=== PATIENT | male | born 1965 | race Caucasian/White ===

== ENCOUNTER → 2019-12-08 08:31 | Outpatient (CLI) | payer OTHER, SELFPAY ==
[2019-12-08 08:49] LABS: Add Manual Diff / Slide Review NO; Basophils Absolute Auto 0 /uL (0-100); Basophils Percent Auto 0.7 % (0-2); Eosinophils Absolute Auto 200 /uL (0-450); Eosinophils Percent Auto 2.6 % (2-4); Hematocrit 39.2 % (41-53); Hemoglobin 13.5 g/dL (13.5-17.5); Lymphocytes Absolute Auto 2100 /uL (1100-4500); Lymphocytes Percent Auto 30.7 % (25-40); Mean Corpuscular HGB Conc 34.5 % (30-36); Mean Corpuscular Hemoglobin 33.5 PG (26-34); Monocytes Absolute Auto 600 /uL (0-900); Monocytes Percent Auto 8.7 % (3-14); Neutrophils Absolute Auto 4000 /uL (1500-7000); Neutrophils Percent Auto 57.3 % (50-75); Platelet Count 179 X10^3/uL (150-400); Red Blood Cell Count 4.04 X10^6/uL (4.5-5.9); Red Cell Distribution Width 13.5 % (11.6-14.8)
[2019-12-08 09:13] LABS: Alanine Aminotransferase 20 IU/L (<50); Albumin 4.6 g/dL (3.5-5.0); Albumin Globulin Ratio 1.5 (1.0-2.8); Alkaline Phosphatase 106 U/L (38-126); Aspartate Aminotransferase 36 IU/L (17-59); BUN Creatinine Ratio 21.3 (6-22); Bilirubin Total 0.5 mg/dL (0.2-1.3); Blood Urea Nitrogen 17 mg/dL (9-20); Calcium 9.7 mg/dL (8.4-10.2); Carbon Dioxide 26 mmol/L (22-32); Chloride 106 mmol/L (98-107); Cholesterol 186 mg/dL (140-199); Estimated Glomerular Filt Rate > 60.0 mL/min (>60); Globulin 3.1 g/dL (1.7-4.1); Glucose 95 mg/dL (70-100); HDL Cholesterol 32 mg/dL (40-60); HEMOLYSIS < 15 (0-50); LDL Cholesterol Calculated 119 mg/dL (<100); Sodium 139 mmol/L (137-145); Total Protein 7.7 g/dL (6.3-8.2); Triglycerides 177 mg/dL (35-150)
[2019-12-08 09:15] LABS: Potassium 4.2 mmol/L (3.4-5.1)
[2019-12-08 09:50] LABS: TSH w/ Reflex to FT4 1.84 uIU/mL (0.47-4.68)
== END ==
PROVIDERS: Family Provider Internal Medicine; PCP Internal Medicine; Referring Provider Internal Medicine; Visit Provider Internal Medicine
DX: I10 Essential (primary) hypertension (principal)
CPT/HCPCS: 36415; 80053; 80061; 84443; 85025

== ENCOUNTER → 2019-12-29 07:52 | Outpatient (CLI) | payer OTHER, SELFPAY ==
--- NOTE | 2019-12-29 08:08 | DI.ECHO.S_ITS ---
Echocardiogram Report + + :Name: CYRIL MULLINS Study Date: 12/29/2019 Height: 67 in : :[facility] Weight: 250 lb : : Gender: Male BSA: 2.2 m2 : :: 1965 Age: 54 yrs BP: 120/74 mmHg: :Reason For Study: Arrhythmia : : Performed By: Evangelina Driver : :Referring: ROSEANNE HAMPTON R : + + Interpretation Summary The left ventricle is normal in size. The left ventricular ejection fraction is normal. There are no focal wall motion abnormalities. Diastolic parameters suggest probable normal left ventricular diastolic function and normal filling pressures. The right ventricle is normal in size and function. -No structural abnormalities by echocardiogram. Procedure: A two-dimensional transthoracic echocardiogram with color flow and Doppler was performed. The study quality was technically adequate. There is no prior echocardiogram noted for this patient. The patient was in normal sinus rhythm during the exam. Left Ventricle: The left ventricle is normal in size. Left ventricular wall thickness is at the upper limits of normal. There is no ventricular septal defect visualized. The ejection fraction is estimated to be 60-65%. The left ventricular ejection fraction is normal. There are no focal wall motion abnormalities. Diastolic parameters suggest probable normal left ventricular diastolic function and normal filling pressures. Right Ventricle: The right ventricle is normal in size and function. Atria: Both atria are normal in size. There is no Doppler evidence for an interatrial shunt. Mitral Valve: The mitral valve is normal in structure and function. There is trace mitral regurgitation. Aortic Valve: The aortic valve is normal in structure and function. The aortic valve opens well. No aortic regurgitation is present. Tricuspid Valve: The tricuspid valve is normal in structure and function. There is a trace or physiologic amount of tricuspid regurgitation. The right ventricular systolic pressure is estimated to be at least 29 mmHg based on an estimated right atrial pressure of 3 mm Hg. Pulmonic Valve: The pulmonic valve is not well seen, but is grossly normal. Great Vessels: The aortic root is normal size. The ascending aorta is normal in size. The aortic arch is mildly enlarged. The IVC is of normal diameter and collapses greater than 50% with a sniff. This suggests a low right atrial pressure of 3 mm Hg. Pericardium/ Pleura There is no pericardial effusion. MMode/2D Measurements & Calculations LVIDd: 5.6 cm LVOT diam: 2.2 cm LVIDs: 3.7 cm Ao root diam: 3.3 cm FS: 34.5 % Aortic Jxn: 2.8 cm EPSS: 0.39 cm asc Aorta Diam: 3.2 cm IVSd: 0.94 cm Ao Arch Diam (Prox Trans): 3.6 cm LVPWd: 1.00 cm LV lyles. diameter/BSA (cm/m^2): 2.5 LV sys. diameter/BSA (cm/m^2): 1.7 LA A2 area: 19.4 cm2 RA long axis: 5.2 cm LA A4 area: 19.5 cm2 RA area: 15.1 cm2 LA length (vol): 4.9 cm RA vol: 37.1 ml LA vol: 65.5 ml RA : 16.7 ml/m2 LA vol index: 29.5 ml/m2 IVC diam: 1.8 cm RVD1 (basal): 4.2 cm RVD2 (mid): 2.4 cm TAPSE: 2.7 cm Doppler Measurements & Calculations Ao V2 max: 190.2 cm/sec LVOT Max Calvin: 115.3 cm/sec Ao V2 mean: 134.0 cm/sec LV V1 max P.3 mmHg Ao max P.5 mmHg LV V1 VTI: 23.2 cm Ao mean P.2 mmHg YAYO(I,D): 2.3 cm2 Ao V2 VTI: 38.8 cm YAYO(V,D): 2.4 cm2 sev ratio: 0.60 YAYO indexed to BSA (cm^2/m^2): 1.0 MV E max calvin: 83.4 cm/sec TR max calvin: 254.3 cm/sec MV A max calvin: 71.6 cm/sec TR max P.0 mmHg MV E/A: 1.2 PA V2 max: 135.2 cm/sec Med Peak E' Calvin: 9.1 cm/sec PA V2 mean: 89.9 cm/sec E/E' med: 9.2 PA mean P.7 mmHg Lat Peak E' Calvin: 10.0 cm/sec PA Accel Time: 0.09 sec E/E' lat: 8.3 E/e' average: 8.8 MV dec time: 0.21 sec MV P1/2t: 61.7 msec MV P1/2t max calvin: 83.8 cm/sec SV(LVOT): 90.4 ml MVA(P1/2t): 3.6 cm2 Electronically signed by: Natanael Nam M.D. on Reading Physician:12/29/2019 06:05 PM
== END ==
PROVIDERS: Family Provider Internal Medicine; PCP Internal Medicine; Referring Provider Internal Medicine; Visit Provider Internal Medicine
DX: I49.9 Cardiac arrhythmia, unspecified (principal)
CPT/HCPCS: 93306

== ENCOUNTER → 2020-06-28 09:05 | Outpatient (CLI) | payer OTHER, SELFPAY ==
[2020-06-28 12:08] LABS: COVID19 -Nasal RAPID Negative (Negative)
== END ==
PROVIDERS: Family Provider Internal Medicine; PCP Internal Medicine; Visit Provider Surgery
DX: Z01.812 Encounter for preprocedural laboratory examination (principal); Z20.822 Contact with and (suspected) exposure to COVID-19
CPT/HCPCS: 87635

== ENCOUNTER 2020-07-01 09:44 | Day surgery (SDC) | payer OTHER, SELFPAY ==
[2020-07-01] VITALS (7 sets, daily range): BP systolic 114–140; BP diastolic 71–89; PULSE 60–78; RESP 11–20; TEMP 36.2–36.8; O2SAT 96–99; BMI 39.1
[2020-07-01] MEDS: LACTATED RINGERS 1,000 ML 200 ML IV (10:38)
--- NOTE | 2020-07-01 12:06 | P.HP_ITS ---
History of Present Illness History of Present Illness Date Patient Seen: 07/01/20 Time Patient Seen: 12:06 Chief complaint: SDC Narrative: The patient presents for colorectal sreening. They have never had any previous examination for such. No personal or family history of colon cancer. On further history denies any recent gastrointestinal symptoms. No nausea, vomiting, abdominal pain, loss of appetite, unexplained weight loss, change in bowel habits, diarrhea, constipation, melena, hematochezia, or bright red blood per rectum. Patient History Medical History Diverticular disease of colon (~1996) Eczema (~1976) Essential hypertension Frequent headaches (~1979) Surgical History Anesthesia S/P partial colectomy (~1996) Family & Social History Family History Mother Diabetes mellitus History of heart disease Father History of heart disease Brother Diabetes mellitus Social History: household members family Tobacco & Substance use: Smoking Status Never smoker alcohol intake current alcohol intake frequency holiday/special occasion Substance Use Type does not use Meds Home Medications and Allergies Home Medications Medication Instructions Recorded Confirmed Type metoprolol succinate 100 mg 100 mg PO BID #180 tab 04/09/20 07/01/20 Rx tablet,extended release 24 hr acetaminophen [Tylenol 8 Hour] 650 mg PO Q8H 07/01/20 07/01/20 History aspirin 325 mg PO Q4H 07/01/20 07/01/20 History diphenhydramine-acetaminophen 2 tab PO BEDTIME PRN 07/01/20 07/01/20 History [Tylenol PM Extra Strength] famotidine 20 mg PO DAILY 07/01/20 07/01/20 History ibuprofen 200 mg PO Q6H PRN 07/01/20 07/01/20 History naproxen sodium 220 mg PO BID 07/01/20 07/01/20 History Allergies Allergy/AdvReac Type Severity Reaction Status Date / Time chlorpheniramine Allergy Unknown Verified 07/01/20 10:16 [CHLORPHENIRAMINE] oxycodone AdvReac Intermediate Nausea/Vomi Verified 07/01/20 10:16 ting Review of Systems Review of Systems Narrative: A 10 point review of systems is negative except as noted in the HPI Exam Vital Signs (past 8 hours): - 07/01/20 10:18 Temperature 97.8 F Pulse Rate 78 Respiratory Rate 15 Blood Pressure 140/89 Pulse Oximetry 97 Oxygen Delivery Method Room Air Narrative Exam Narrative: General-no acute distress, well nourished adult male HEENT-moist mucous membranes, no scleral icterus Neck-supple, no lymphadenopathy Chest- non labored respirations, clear to auscultation bilaterally Cardiac-regular rate no peripheral edema Abdomen-soft, nontender, non distended Extremities-warm, well perfused Neurological-alert and oriented, no focal deficits Assessment & Plan Assessment & Plan narrative: The patient requires colorectal screening and colonoscopy is recommended. Technical details were discussed. Risks, benefits, alternatives explained. Risks including but not limited to myocardial infarction, aspiration, bleeding, pain, missed lesion, incomplete examination, need for further radiographic studies, colonic perforation, and need for major abdominal surgery were discussed. All questions were answered to their satisf action, and they are in agreement with this plan.
[2020-07-01] MEDS: fentaNYL 250 MCG/5 ML INJ IV (12:24)
[2020-07-01] MEDS: MIDAZOLAM 5 MG/5 ML VIAL IV (12:24)
--- NOTE | 2020-07-01 12:32 | PM.OP.ENDO ---
Operative Date/Time/Diagnoses Date of procedure: 07/01/20 Time of procedure: 12:32 Pre-op diagnosis: screening colonoscopy Post-op diagnosis: same Procedure & Clinicians Study performed: colonoscopy Same procedure as scheduled: Yes Indications: 55M no prior colonoscopy here for screening Surgeon: Favian Keys Procedure Notes Procedure in detail: Medications: Conscious sedation using 5mg IV midazolam and 150mcg IV of fentanyl The history and physical was performed/updated and the patient is ASA class is 2. The procedure was discussed in detail with the patient. Potential risks complications including infection, bleeding, missed diagnosis, perforation, need for surgery, and were explained. Their questions were answered and informed consent was obtained. Patient was brought to the procedure room and placed standard monitoring equipment. The patient's vital signs were monitored continuously throughout the entire procedure. Prior to starting time-out was performed. The patient was placed in the left lateral recumbent position. Procedural sedation was administered. Examination began with a thorough inspection of the perianal area there was no evidence of fissures, fistulae, external hemorrhoids or cutaneous malignancy. The colonoscopy scope was then placed into the anal canal and was advanced to the cecum, which was identified by the ileocecal valve, the appendiceal orifice and the confluence of the taenia. The scope was then slowly withdrawn examining colon thoroughly in all directions, irrigating it of any residual stool. No masses or polyps End to side colonic anastamosis The patient tolerated the procedure well. They will be discharged once criteria are met. The prep was of good/excellent quality. The withdrawl time was 6 minutes. The sedation time was 20 minutes. Specimen(s): none sent Complications: none Impression: Normal colonoscopy Post-procedure Recommendations: Colonscopy in 10 years Disposition: same day surgery
== END 2020-07-01 13:25 | disposition home or self-care (01) ==
PROVIDERS: Family Provider Internal Medicine; PCP Internal Medicine; Referring Provider Surgery; Visit Provider Surgery
PROC: 0DJD8ZZ Inspection of Lower Intestinal Tract, Via Natural or Artificial Opening Endoscopic (ICD-10-PCS; CPT 45378; principal; 2020-07-01 10:45)
DX: Z12.11 Encounter for screening for malignant neoplasm of colon (principal); I10 Essential (primary) hypertension
CPT/HCPCS: 45378; 99152; J2250; J3010

== ENCOUNTER → 2020-11-18 14:11 | Outpatient (CLI) | payer OTHER, SELFPAY ==
[2020-11-18 16:17] LABS: Alanine Aminotransferase 19 IU/L (<50); Albumin 4.4 g/dL (3.5-5.0); Albumin Globulin Ratio 1.4 (1.0-2.8); Alkaline Phosphatase 92 U/L (38-126); Aspartate Aminotransferase 32 IU/L (17-59); Bilirubin Total 0.6 mg/dL (0.2-1.3); Blood Urea Nitrogen 16 mg/dL (9-20); Calcium 10.8 mg/dL (8.4-10.2); Carbon Dioxide 25 mmol/L (22-32); Chloride 103 mmol/L (98-107); Estimated Glomerular Filt Rate > 60.0 mL/min (>60); Globulin 3.1 g/dL (1.7-4.1); Glucose 145 mg/dL (70-100); HEMOLYSIS < 15 (0-50); Potassium 4.5 mmol/L (3.4-5.1); Sodium 137 mmol/L (137-145); Total Protein 7.5 g/dL (6.3-8.2)
[2020-11-18 16:47] LABS: Prostate Specific Antigen Scrn 0.765 ng/mL (0.1-4.0)
[2020-11-18 16:49] LABS: TSH w/ Reflex to FT4 0.76 uIU/mL (0.47-4.68)
== END ==
PROVIDERS: Family Provider Internal Medicine; PCP Internal Medicine; Referring Provider Internal Medicine; Visit Provider Internal Medicine
DX: I10 Essential (primary) hypertension (principal); L30.9 Dermatitis, unspecified; Z12.5 Encounter for screening for malignant neoplasm of prostate
CPT/HCPCS: 36415; 80053; 84443; G0103

== ENCOUNTER → 2022-01-09 15:21 | Outpatient (CLI) | payer OTHER, SELFPAY ==
[2022-01-09 18:20] LABS: Alanine Aminotransferase 16 IU/L (<50); Albumin 4.3 g/dL (3.5-5.0); Albumin Globulin Ratio 1.5 (1.0-2.8); Alkaline Phosphatase 92 U/L (38-126); Aspartate Aminotransferase 28 IU/L (17-59); BUN Creatinine Ratio 16.1 (6-22); Bilirubin Total 0.4 mg/dL (0.2-1.3); Blood Urea Nitrogen 14 mg/dL (9-20); Calcium 9.1 mg/dL (8.4-10.2); Carbon Dioxide 26 mmol/L (22-32); Chloride 101 mmol/L (98-107); Estimated Glomerular Filt Rate > 60 mL/min (>60); Globulin 2.9 g/dL (1.7-4.1); Glucose 210 mg/dL (70-100); HEMOLYSIS < 15 (0-50); Potassium 4.3 mmol/L (3.4-5.1); Sodium 139 mmol/L (137-145); Total Protein 7.2 g/dL (6.3-8.2)
[2022-01-09 18:50] LABS: TSH w/ Reflex to FT4 0.52 uIU/mL (0.47-4.68)
== END ==
PROVIDERS: Family Provider Internal Medicine; PCP Internal Medicine; Referring Provider Internal Medicine; Visit Provider Internal Medicine
DX: I10 Essential (primary) hypertension (principal); R51.9 Headache, unspecified
CPT/HCPCS: 36415; 80053; 84443

== ENCOUNTER → 2022-01-13 10:28 | Outpatient (CLI) | payer OTHER, SELFPAY ==
[2022-01-13 11:51] LABS: Hemoglobin A1C% w Est Avg Glu 6.2 % (4.0-6.0)
== END ==
PROVIDERS: Family Provider Internal Medicine; PCP Internal Medicine; Referring Provider Internal Medicine; Visit Provider Internal Medicine
DX: R73.9 Hyperglycemia, unspecified (principal)
CPT/HCPCS: 36415; 83036

== ENCOUNTER → 2022-01-22 14:53 | Outpatient (CLI) | payer OTHER, SELFPAY ==
[2022-01-22 16:42] LABS: COVID19 -Nasal RAPID Negative (Negative)
== END ==
PROVIDERS: Family Provider Internal Medicine; PCP Internal Medicine; Referring Provider Internal Medicine; Visit Provider Internal Medicine
DX: Z20.822 Contact with and (suspected) exposure to COVID-19 (principal)
CPT/HCPCS: 87635; C9803

== ENCOUNTER → 2022-01-23 13:55 | Outpatient (CLI) | payer OTHER, SELFPAY ==
--- NOTE | 2022-01-28 09:02 | PM.PFT.1 ---
Pulmonary Function Test Referral & Results Date Patient Seen: 01/23/22 Requesting provider: Ritchie Cuevas Results: The spirometry demonstrates an FVC of 4.07 L which is 89% of predicted. The FEV1 was measured at 3.23 L which is 93% of predicted. The FEV1/FVC ratio was 79 which is 104% of predicted. Following the administration of bronchodilator there was 15% improvement in FEV1 and a 40% improvement in FEF 25-75%. Lung volumes show an SVC of 4.30 L which is 95% of predicted. The diffusing capacity was measured at 31.74 which is 107% of predicted. The maximum voluntary ventilation was normal Interpretation: This study demonstrates normal pulmonary function. There is evidence however of benefit following bronchodilator as above Clinical correlation suggested
== END ==
PROVIDERS: Family Provider Internal Medicine; PCP Internal Medicine; Referring Provider Internal Medicine; Visit Provider Internal Medicine
DX: R06.2 Wheezing (principal)
CPT/HCPCS: 94060; 94726; 94729

== ENCOUNTER → 2022-02-12 12:25 | Outpatient (CLI) | payer OTHER, SELFPAY ==
[2022-02-12 13:08] LABS: COVID19 -Nasal RAPID Negative (Negative)
--- NOTE | 2022-02-12 14:26 | PM.TREADMILL ---
Cardiac Stress Test Report Referral & Results Date Patient Seen: 02/12/22 Requesting provider: Ritchie Cuevas Indication: Wheezing with exertion Rest ECG: Unremarkable, minimally tachycardic off metoprolol Procedure Note: Today following both written and verbal informed consent, the patient was exercised according to a standard Anthony protocol. The patient exercised for a total of 8 minutes 1 second achieving a maximum heart rate of 182. Patient's maximum systolic blood pressure was 190. This was an estimated 10.1 MET's. Exercise was terminated because of patient having met targets Patient did develop more of a stridorous like sound in the last 60-120 seconds Patient was rather quickly tachycardic likely secondary to interruption his beta-eleni therapy There were nonspecific ST-T segment changes in the lateral leads as heart rate increase that almost immediately returned to normal in recovery as heart rate decreased Rare PAC and single PVC noted Function aerobic impairment rates about 5% on the sedentary scale Impression: No evidence of cardiac ischemia based on usual ECG criteria Average exercise capacity Based on observations at time of treadmill and knowing that his PFTs were essentially normal, I would assume he is experiencing more stridor from upper airway irritation as his workload and work of breathing increases rather than any true primary pulmonary or certainly no cardiac disease found during testing This is communicated to patient and he will follow-up with me as previously scheduled Please note: Actual ECG tracings can be found in the PACS system.
== END ==
PROVIDERS: Family Provider Internal Medicine; PCP Internal Medicine; Referring Provider Internal Medicine; Visit Provider Internal Medicine
DX: R06.02 Shortness of breath (principal); Z20.822 Contact with and (suspected) exposure to COVID-19; R00.0 Tachycardia, unspecified
CPT/HCPCS: 87635; 93016; 93017; 93018

== ENCOUNTER → 2022-05-27 10:34 | Outpatient (CLI) | payer OTHER, MEDICAID, SELFPAY ==
[2022-05-27 13:28] LABS: Hemoglobin A1C% w Est Avg Glu 6.6 % (4.0-6.0)
[2022-05-27 13:55] LABS: BUN Creatinine Ratio 18.3 (6-22); Blood Urea Nitrogen 15 mg/dL (9-20); Calcium 9.2 mg/dL (8.4-10.2); Carbon Dioxide 25 mmol/L (22-32); Chloride 101 mmol/L (98-107); Estimated Glomerular Filt Rate > 60 mL/min (>60); Glucose 115 mg/dL (70-100); HEMOLYSIS < 15 (0-50); Sodium 138 mmol/L (137-145)
== END ==
PROVIDERS: Family Provider Internal Medicine; PCP Internal Medicine; Referring Provider Internal Medicine; Visit Provider Internal Medicine
DX: R73.02 Impaired glucose tolerance (oral) (principal); R73.9 Hyperglycemia, unspecified
CPT/HCPCS: 36415; 80048; 83036

== ENCOUNTER → 2022-08-27 08:37 | Outpatient (CLI) | payer OTHER, MEDICAID, SELFPAY ==
[2022-08-27 09:35] LABS: Hemoglobin A1C% w Est Avg Glu 6.8 % (4.0-6.0)
[2022-08-27 09:37] LABS: Creatinine Urine Random 81.9 mg/dL
[2022-08-27 09:44] LABS: Microalbumin Urine Random < 0.6 mg/dL (0-1.6)
[2022-08-27 10:21] LABS: BUN Creatinine Ratio 18.2 (6-22); Blood Urea Nitrogen 16 mg/dL (9-20); Calcium 9.1 mg/dL (8.4-10.2); Carbon Dioxide 28 mmol/L (22-32); Chloride 100 mmol/L (98-107); Cholesterol 177 mg/dL (140-199); Estimated Glomerular Filt Rate > 60 mL/min (>60); Glucose 129 mg/dL (70-100); HDL Cholesterol 30 mg/dL (40-60); HEMOLYSIS < 15 (0-50); LDL Cholesterol Calculated 95 mg/dL (<100); Potassium 4.2 mmol/L (3.4-5.1); Sodium 136 mmol/L (137-145); Triglycerides 261 mg/dL (35-150)
== END ==
PROVIDERS: Family Provider Internal Medicine; PCP Internal Medicine; Referring Provider Internal Medicine; Visit Provider Internal Medicine
DX: E11.9 Type 2 diabetes mellitus without complications (principal); I10 Essential (primary) hypertension; Z13.6 Encounter for screening for cardiovascular disorders
CPT/HCPCS: 36415; 80048; 80061; 82043; 82570; 83036

== ENCOUNTER → 2023-02-22 10:23 | Outpatient (CLI) | payer OTHER, MEDICAID, SELFPAY ==
[2023-02-22 11:04] LABS: Hemoglobin A1C% w Est Avg Glu 7.2 % (4.0-6.0)
[2023-02-22 11:23] LABS: BUN Creatinine Ratio 15.3 (6-22); Blood Urea Nitrogen 13 mg/dL (9-20); Carbon Dioxide 25 mmol/L (22-32); Chloride 102 mmol/L (98-107); Estimated Glomerular Filt Rate > 60 mL/min (>60); Glucose 152 mg/dL (70-100); HEMOLYSIS < 15 (0-50); Potassium 4.5 mmol/L (3.4-5.1); Sodium 136 mmol/L (137-145)
== END ==
PROVIDERS: Family Provider Internal Medicine; PCP Internal Medicine; Referring Provider Internal Medicine; Visit Provider Internal Medicine
DX: E11.9 Type 2 diabetes mellitus without complications (principal); I10 Essential (primary) hypertension
CPT/HCPCS: 36415; 80048; 83036

== ENCOUNTER → 2023-05-27 14:17 | Outpatient (CLI) | payer OTHER, MEDICAID, SELFPAY ==
[2023-05-27 18:41] LABS: BUN Creatinine Ratio 15.4 (6-22); Blood Urea Nitrogen 14 mg/dL (9-20); Calcium 9.5 mg/dL (8.4-10.2); Carbon Dioxide 26 mmol/L (22-32); Chloride 99 mmol/L (98-107); Estimated Glomerular Filt Rate > 60 mL/min (>60); Glucose 270 mg/dL (70-100); HEMOLYSIS < 15 (0-50); Potassium 4.8 mmol/L (3.4-5.1); Sodium 135 mmol/L (137-145)
[2023-05-28 15:06] LABS: Hemoglobin A1C% w Est Avg Glu 7.6 % (4.0-6.0)
== END ==
PROVIDERS: Family Provider Internal Medicine; PCP Internal Medicine; Referring Provider Internal Medicine; Visit Provider Internal Medicine
DX: E11.9 Type 2 diabetes mellitus without complications (principal); I10 Essential (primary) hypertension
CPT/HCPCS: 36415; 80048; 83036

== ENCOUNTER → 2023-10-01 08:27 | Outpatient (CLI) | payer OTHER, MEDICAID, SELFPAY ==
[2023-10-01 10:15] LABS: Creatinine Urine Random 135.3 mg/dL
[2023-10-01 10:21] LABS: Microalbumi Creatinin Ratio Ur 7.3 ug/mg CR (<30)
[2023-10-01 10:24] LABS: Hemoglobin A1C% w Est Avg Glu 9.6 % (4.0-6.0)
[2023-10-01 10:36] LABS: Alanine Aminotransferase 30 IU/L (<50); Albumin 4.3 g/dL (3.5-5.0); Albumin Globulin Ratio 1.4 (1.0-2.8); Alkaline Phosphatase 110 U/L (38-126); Aspartate Aminotransferase 40 IU/L (17-59); BUN Creatinine Ratio 20.3 (6-22); Bilirubin Total 0.9 mg/dL (0.2-1.3); Blood Urea Nitrogen 16 mg/dL (9-20); Calcium 9.4 mg/dL (8.4-10.2); Carbon Dioxide 27 mmol/L (22-32); Chloride 101 mmol/L (98-107); Cholesterol 193 mg/dL (140-199); Estimated Glomerular Filt Rate > 60 mL/min (>60); Glucose 197 mg/dL (70-100); HDL Cholesterol 32 mg/dL (40-60); HEMOLYSIS < 15 (0-50); LDL Cholesterol Calculated 95 mg/dL (<100); Potassium 4.3 mmol/L (3.4-5.1); Sodium 136 mmol/L (137-145); Total Protein 7.3 g/dL (6.3-8.2); Triglycerides 328 mg/dL (35-150)
[2023-10-01 11:00] LABS: Prostate Specific Antigen Scrn 0.595 ng/mL (0.1-4.0)
== END ==
PROVIDERS: Family Provider Internal Medicine; PCP Internal Medicine; Referring Provider Internal Medicine; Visit Provider Internal Medicine
DX: Z12.5 Encounter for screening for malignant neoplasm of prostate (principal); E11.9 Type 2 diabetes mellitus without complications; I10 Essential (primary) hypertension; K21.9 Gastro-esophageal reflux disease without esophagitis; E66.01 Morbid (severe) obesity due to excess calories
CPT/HCPCS: 36415; 80053; 80061; 82043; 82570; 83036; G0103

== ENCOUNTER → 2023-12-21 11:05 | Outpatient (CLI) | payer OTHER, MEDICAID, SELFPAY ==
[2023-12-21 12:26] LABS: Hemoglobin A1C% w Est Avg Glu 6.7 % (4.0-6.0)
[2023-12-21 12:50] LABS: BUN Creatinine Ratio 14.6 (6-22); Blood Urea Nitrogen 12 mg/dL (9-20); Calcium 9.1 mg/dL (8.4-10.2); Carbon Dioxide 26 mmol/L (22-32); Chloride 103 mmol/L (98-107); Estimated Glomerular Filt Rate > 60 mL/min (>60); Glucose 216 mg/dL (70-100); HEMOLYSIS < 15 (0-50); Potassium 4.5 mmol/L (3.4-5.1); Sodium 137 mmol/L (137-145)
== END ==
PROVIDERS: Family Provider Internal Medicine; PCP Internal Medicine; Referring Provider Internal Medicine; Visit Provider Internal Medicine
DX: E11.65 Type 2 diabetes mellitus with hyperglycemia (principal)
CPT/HCPCS: 36415; 80048; 83036

== ENCOUNTER → 2024-03-17 10:15 | Outpatient (CLI) | payer OTHER, MEDICAID, SELFPAY ==
[2024-03-17 11:19] LABS: BUN Creatinine Ratio 15.6 (6-22); Blood Urea Nitrogen 14 mg/dL (9-20); Calcium 9.2 mg/dL (8.4-10.2); Carbon Dioxide 25 mmol/L (22-32); Chloride 101 mmol/L (98-107); Estimated Glomerular Filt Rate > 60 mL/min (>60); Glucose 217 mg/dL (70-100); HEMOLYSIS < 15 (0-50); Potassium 4.4 mmol/L (3.4-5.1); Sodium 136 mmol/L (137-145)
== END ==
PROVIDERS: Family Provider Internal Medicine; PCP Internal Medicine; Referring Provider Internal Medicine; Visit Provider Internal Medicine
DX: E11.65 Type 2 diabetes mellitus with hyperglycemia (principal); I10 Essential (primary) hypertension
CPT/HCPCS: 36415; 80048; 83036

== ENCOUNTER → 2024-06-16 11:29 | Outpatient (CLI) | payer OTHER, SELFPAY ==
[2024-06-16 12:36] LABS: Hemoglobin A1C% w Est Avg Glu 7.2 % (4.0-6.0)
[2024-06-16 12:47] LABS: BUN Creatinine Ratio 17.3 (6-22); Blood Urea Nitrogen 14 mg/dL (9-20); Calcium 9.5 mg/dL (8.4-10.2); Carbon Dioxide 23 mmol/L (22-32); Chloride 103 mmol/L (98-107); Estimated Glomerular Filt Rate > 60 mL/min (>60); Glucose 234 mg/dL (70-100); HEMOLYSIS < 15 (0-50); Potassium 4.4 mmol/L (3.4-5.1); Sodium 137 mmol/L (137-145)
== END ==
PROVIDERS: Family Provider Internal Medicine; PCP Internal Medicine; Referring Provider Internal Medicine; Visit Provider Internal Medicine
DX: E11.65 Type 2 diabetes mellitus with hyperglycemia (principal); I10 Essential (primary) hypertension
CPT/HCPCS: 36415; 80048; 83036

== ENCOUNTER → 2025-02-24 11:02 | Outpatient (CLI) | payer OTHER, SELFPAY ==
[2025-02-24 11:18] LABS: Add Manual Diff / Slide Review NO; Hematocrit 36.6 % (41-53); Hemoglobin 12.7 g/dL (13.5-17.5); Lymphocytes Absolute Auto 1900 /uL (1100-4500); Mean Corpuscular HGB Conc 34.7 % (30-36); Mean Corpuscular Hemoglobin 33.3 PG (26-34); Mean Corpuscular Volume 95.9 fL (80-100); Platelet Count 215 X10^3/uL (150-400)
[2025-02-24 11:30] LABS: Hemoglobin A1C% w Est Avg Glu 7.5 % (4.0-6.0)
[2025-02-24 11:36] LABS: Alanine Aminotransferase 23 IU/L (<50); Albumin 4.4 g/dL (3.5-5.0); Albumin Globulin Ratio 1.5 (1.0-2.8); Alkaline Phosphatase 88 U/L (38-126); Blood Urea Nitrogen 17 mg/dL (9-20); Calcium 9.6 mg/dL (8.4-10.2); Carbon Dioxide 25 mmol/L (22-32); Chloride 101 mmol/L (98-107); Estimated Glomerular Filt Rate > 60 mL/min (>60); Globulin 3.0 g/dL (1.7-4.1); Glucose 161 mg/dL (70-99); HEMOLYSIS < 15 (0-50); Potassium 4.8 mmol/L (3.4-5.1); Sodium 137 mmol/L (137-145); Total Protein 7.4 g/dL (6.3-8.2)
[2025-02-24 14:17] LABS: Microalbumi Creatinin Ratio Ur 10.0 ug/mg CR (<30)
== END ==
PROVIDERS: PCP Internal Medicine; Referring Provider Internal Medicine; Visit Provider Internal Medicine
DX: I10 Essential (primary) hypertension (principal); E11.9 Type 2 diabetes mellitus without complications
CPT/HCPCS: 36415; 80053; 82043; 82570; 83036; 85025

== ENCOUNTER → 2025-05-28 15:17 | Outpatient (CLI) | payer OTHER, SELFPAY ==
[2025-05-28 16:04] LABS: Hemoglobin A1C% w Est Avg Glu 6.0 % (4.0-6.0)
[2025-05-28 16:23] LABS: Blood Urea Nitrogen 13 mg/dL (9-20); Calcium 9.7 mg/dL (8.4-10.2); Carbon Dioxide 26 mmol/L (22-32); Chloride 101 mmol/L (98-107); Estimated Glomerular Filt Rate > 60 mL/min (>60); Glucose 131 mg/dL (70-99); HEMOLYSIS < 15 (0-50); Potassium 4.3 mmol/L (3.4-5.1); Sodium 139 mmol/L (137-145)
== END ==
PROVIDERS: PCP Internal Medicine; Referring Provider Internal Medicine; Visit Provider Internal Medicine
DX: E11.65 Type 2 diabetes mellitus with hyperglycemia (principal); I10 Essential (primary) hypertension
CPT/HCPCS: 36415; 80048; 83036